=== PATIENT | male | born 1955 | race Caucasian/White ===

== ENCOUNTER 2017-01-09 06:29 | Day surgery (SDC) | payer BC ==
--- NOTE | ~2017-01-09 | EGD ---
EGD REPORT [facility] [address] [address] NAME: ARISTEO RAJAN : [birth year] STATUS : REG [facility]#: [id number] AGE: 61 ADM/REG DATE : 01/09/17 MR#: [id number] REPORT SERV DATE: 01/09/17 DICTATED BY: DALE CERVANTES DATE: 01/09/17 REPORT STATUS : Draft TRANSCRIBED BY: [facility] DATE: 01/09/17 Endoscopy Center Patient Name: Aristeo Rajan Date of : 1955 Attending MD: DALE CERVANTES MD Procedure Date No Time: 01/09/2017 Procedure: Upper GI endoscopy Indications: Iron deficiency anemia Referring MD: SHAHANA NASH II Medicines: Propofol per Anesthesia Complications: No immediate complications. Procedure: Pre-Anesthesia Assessment: - ASA Grade Assessment: III - A patient with severe systemic disease. After obtaining informed consent, the endoscope was passed under direct vision. Throughout the procedure, the patient's blood pressure, pulse, and oxygen saturations were monitored continuously. The GIF H190 [id number] was introduced through the mouth, and advanced to the second part of duodenum. The upper GI endoscopy was accomplished without difficulty. The patient tolerated the procedure well. Findings: A small hiatus hernia was present. A mild Schatzki ring (acquired) was found at the gastroesophageal junction. Diffuse moderate inflammation characterized by erosions, erythema and friability was found in the stomach. Biopsies were taken with a cold forceps for histology. Diffuse mild inflammation characterized by erosions and erythema was found in the duodenal bulb and in the first part of the duodenum. Biopsies were taken with a cold forceps for histology. Impression: - Hiatus hernia. - Mild Schatzki ring. - Chronic gastritis. Biopsied. - Chronic duodenitis. Biopsied. Recommendation: - Discharge patient to home (ambulatory). - Return to my office in 3 weeks. Procedure Code(s): --- Professional --- 83352, Esophagogastroduodenoscopy, flexible, transoral; with biopsy, single or multiple EGD REPORT [address] [address] NAME: ARISTEO RAJAN : [birth year] STATUS : REG [facility]#: [id number] AGE: 61 ADM/REG DATE : 01/09/17 MR#: [id number] REPORT SERV DATE: 01/09/17 DICTATED BY: DALE CERVANTES. DATE: 01/09/17 REPORT STATUS : Draft TRANSCRIBED BY: [employer] [facility] DATE: 01/09/17 Diagnosis Code(s): --- Professional --- K44.9, Diaphragmatic hernia without obstruction or gangrene K22.2, Esophageal obstruction K29.50, Unspecified chronic gastritis without bleeding K29.80, Duodenitis without bleeding D50.9, Iron deficiency anemia, unspecified CPT copyright 2013 [employer]. All rights reserved. The codes documented in this report are preliminary and upon porcelain mixer review may be revised to meet current compliance requirements. Dale Cervantes MD DALE CERVANTES MD 01/09/2017 8:13 AM This report has been signed electronically. Number of Addenda: 0 Note Initiated On: 01/09/2017 8:02 AM Scope Withdrawal Time 0 hours 0 minutes [address] [place] [id number]
--- NOTE | ~2017-01-09 | EGD ---
EGD REPORT [facility] [address] [address] NAME: ARISTEO RAJAN : [birth year] [place] [facility] [place] [id number] AGE: 61 ADM/REG DATE : 01/09/17 MR#: [id number] REPORT SERV DATE: 01/09/17 DICTATED BY: DALE CERVANTES DATE: 01/09/17 REPORT STATUS : Draft [facility]ANS[facility]IBED BY: [facility] DATE: 01/09/17 Endoscopy Center Patient Name: Aristeo Rajan Date of : 1955 Attending MD: DALE CERVANTES MD Procedure Date No Time: 01/09/2017 Procedure: Colonoscopy Indications: Iron deficiency anemia Referring MD: SHAHANA NASH II Medicines: Propofol per Anesthesia Complications: No immediate complications. Procedure: Pre-Anesthesia Assessment: - ASA Grade Assessment: III - A patient with severe systemic disease. - Prior to the procedure, a History and Physical was performed, and patient medications and allergies were reviewed. The patient's tolerance of previous anesthesia was also reviewed. The risks and benefits of the procedure and the sedation options and risks were discussed with the patient. All questions were answered, and informed consent was obtained. Prior Anticoagulants: The patient has taken no previous anticoagulant or antiplatelet agents. ASA Grade Assessment: III - A patient with severe systemic disease. After reviewing the risks and benefits, the patient was deemed in satisfactory condition to undergo the procedure. After I obtained informed consent, the scope was passed under direct vision. Throughout the procedure, the patient's blood pressure, pulse, and oxygen saturations were monitored continuously. The PCF [id number] was introduced through the anus and advanced to the cecum, identified by appendiceal orifice and ileocecal valve. The colonoscopy was performed without difficulty. The patient tolerated the procedure well. The quality of the bowel preparation was good. The ileocecal valve, appendiceal orifice and terminal ileum were photographed. The entire colon was examined. The colonoscopy was performed without difficulty. The patient tolerated the procedure well. The quality of the bowel preparation was good. Findings: The perianal and digital rectal examinations were normal. A sessile polyp was found in the proximal transverse colon. The polyp was 10 mm in size. The polyp was removed with a hot snare. Resection and EGD REPORT [address] [address] NAME: ARISTEO RAJAN : [birth year] STATUS : REG [facility]#: [id number] AGE: 61 ADM/REG DATE : 01/09/17 MR#: [id number] REPORT SERV DATE: 01/09/17 DICTATED BY: DALE CERVANTES DATE: 01/09/17 REPORT STATUS : Draft TRANSCRIBED BY: [employer] DATE: 01/09/17 retrieval were complete. A sessile polyp was found in the distal transverse colon. The polyp was 5 mm in size. The polyp was removed with a hot snare. Resection and retrieval were complete. A few small-mouthed diverticula were found in the recto-sigmoid colon and in the sigmoid colon. Internal hemorrhoids were found during retroflexion and were Grade I (internal hemorrhoids that do not prolapse). The rest of the colon was normal. Impression: - One 10 mm polyp in the proximal transverse colon. Resected and retrieved. - One 5 mm polyp in the distal transverse colon. Resected and retrieved. - Diverticulosis in the recto-sigmoid colon and in the sigmoid colon. - Internal hemorrhoids. Recommendation: - Patient has a contact number available for emergencies. The signs and symptoms of potential delayed complications were discussed with the patient. Return to normal activities tomorrow. Written discharge instructions were provided to the patient. - Regular diet. - Patient has a contact number available for emergencies. The signs and symptoms of potential delayed complications were discussed with the patient. Return to normal activities tomorrow. Written discharge instructions were provided to the patient. - Continue present medications. Procedure Code(s): --- Professional --- 85980, Colonoscopy, flexible, proximal to splenic flexure; with removal of tumor(s), polyp(s), or other lesion(s) by snare technique Diagnosis Code(s): --- Professional --- D12.3, Benign neoplasm of transverse colon K64.0, First degree hemorrhoids K57.30, Diverticulosis of large intestine without perforation or abscess without bleeding D50.9, Iron deficiency anemia, unspecified CPT copyright 2013 [employer]. All rights reserved. The codes documented in this report are preliminary and upon granulating blender review may EGD REPORT [facility] [address] [place] [address] NAME: ARISTEO RAJAN : [birth year] [place] : [place] [facility] [place] [id number] AGE: 61 ADM/REG DATE : 01/09/17 MR#: [id number] REPORT SERV DATE: 01/09/17 DICTATED BY: DALE CERVANTES. DATE: 01/09/17 REPORT STATUS : Draft TRANSCRIBED BY: [employer] DATE: 01/09/17 be revised to meet current compliance requirements. Dale Cervantes MD DALE CERVANTES MD 01/09/2017 8:29 AM This report has been signed electronically. Number of Addenda: 0 Note Initiated On: 01/09/2017 8:02 AM Scope Withdrawal Time 0 hours 6 minutes 52 seconds [facility] [place] [id number]
[~2017-01-09 06:29] MED LIST: ASAB PO; LIPITOR80 MG PO; LOP25 PO
== END 2017-01-09 23:59 | disposition home or self-care (01) ==
LOC: DMU 06:29
PROVIDERS: Internal Medicine Gastroenterology
PROC: 0DB68ZX Excision of Stomach, Via Natural or Artificial Opening Endoscopic, Diagnostic (ICD-10-PCS; 2017-01-09)
PROC: 0DBL8ZX Excision of Transverse Colon, Via Natural or Artificial Opening Endoscopic, Diagnostic (ICD-10-PCS; principal; 2017-01-09 08:00)
PROC: 0DB98ZX Excision of Duodenum, Via Natural or Artificial Opening Endoscopic, Diagnostic (ICD-10-PCS; 2017-01-09 08:00)
DX: D12.3 Benign neoplasm of transverse colon (principal); K64.0 First degree hemorrhoids; K57.30 Diverticulosis of large intestine without perforation or abscess without bleeding; K44.9 Diaphragmatic hernia without obstruction or gangrene; K29.80 Duodenitis without bleeding; K22.2 Esophageal obstruction; I10 Essential (primary) hypertension; I25.2 Old myocardial infarction; I25.10 Atherosclerotic heart disease of native coronary artery without angina pectoris; Z95.5 Presence of coronary angioplasty implant and graft; Z98.890 Other specified postprocedural states
CPT/HCPCS: 88305